=== PATIENT | female | born 1970 | race Caucasian/White ===

== ENCOUNTER 2020-09-15 11:18 | Emergency (ER) | payer MEDICAID, OTHER ==
[~2020-09-15] VITALS: Ht 165.1 cm; Wt 66.0 kg
[2020-09-15] MEDS ORDERED: KETOROLAC 60MG/2ML VIAL IM STA (11:49)
[2020-09-15] MEDS ORDERED: HYDROCODONE/ACETAMINOPHEN 5/325MG TABLET PO STA (11:49)
[2020-09-15 13:21] LABS: CLARITY URINE TURBID (CLEAR); COLOR URINE YELLOW (YELLOW); KETONES URINE NEGATIVE (NEGATIVE); LEUKOCYTE ESTERASE URINE 2+ (NEGATIVE); NITRITE URINE NEGATIVE (NEGATIVE); OCCULT BLOOD URINE NEGATIVE (NEGATIVE); PH URINE 5.5 (4.5-8.0); PROTEIN URINE NEGATIVE (NEGATIVE); SPECIFIC GRAVITY URINE 1.018 (1.005-1.030); UROBILINOGEN URINE 0.2 E.U./dL (0.2-1.0)
[2020-09-15] MEDS ORDERED: NAPR-681 PO (13:52)
[2020-09-15] MEDS ORDERED: HYDR-4346 PO (13:52)
[2020-09-15 14:12] VITALS: BP 101/64
== END 2020-09-15 14:13 | disposition home or self-care (01) ==
LOC: ER 11:18
DX: R07.81 Pleurodynia (principal); M54.9 Dorsalgia, unspecified; M54.5 Low back pain
CPT/HCPCS: 71101; 81003; 93005; 96372; 99285; J1885

== ENCOUNTER 2021-10-29 13:52 | Emergency (ER) | payer MEDICAID, OTHER ==
[~2021-10-29] VITALS: Ht 154.9 cm; Wt 68.0 kg
[~2021-10-29 13:52] MED LIST: HYDR-4346 PO; NAPR-681 PO
[2021-10-29 14:01] VITALS: BP 186/87
[2021-10-29] MEDS ORDERED: IBUPROFEN 600MG TABLET PO STA (15:48)
[2021-10-29 15:59] LABS: CHLORIDE 105 mEq/L (98-107)
[2021-10-29 16:05] LABS: ETHANOL BLOOD < 10 mg/dL
[2021-10-29 16:14] LABS: BASOPHILS % 1.1 % (0.0-2.0); EOSINOPHILS % 2.4 % (0.0-5.0); HEMATOCRIT. 43.8 % (36.0-48.0); HEMOGLOBIN. 14.8 g/dL (12.0-16.0); LYMPHOCYTES % 26.7 % (20.0-50.0); MEAN CORPUSCULAR HEMOGLOBIN 29.3 pg (28.0-32.0); MEAN CORPUSCULAR VOLUME 86.8 fL (81.0-99.0); MEAN PLATELET VOLUME 8.1 fl (7.4-10.4); MONOCYTES % 5.4 % (2.0-8.0); NEUTROPHILS % 64.4 % (40.0-76.0); PLATELET 309 x1000/uL (130-400); RED BLOOD CELL COUNT 5.04 mill/uL (4.2-5.4); RED CELL DISTRIBUTION WIDTH 13.2 % (11.6-14.6)
[2021-10-29] MEDS ORDERED: POTASSIUM CHLORIDE 20MEQ TABLET SR PO NR (16:45)
== END 2021-10-29 17:56 | disposition left against medical advice (07) ==
LOC: ER 13:58
DX: R10.84 Generalized abdominal pain (principal); E87.6 Hypokalemia; I10 Essential (primary) hypertension; F17.290 Nicotine dependence, other tobacco product, uncomplicated; Z98.890 Other specified postprocedural states
CPT/HCPCS: 36415; 80053; 80320; 85025; 99283; G0480

== ENCOUNTER 2022-02-16 17:21 | Emergency (ER) | payer MEDICAID ==
[~2022-02-16] VITALS: Ht 160 cm; Wt 82.0 kg
[2022-02-16 17:55] VITALS: BP 135/83
== END 2022-02-16 20:45 | disposition left against medical advice (07) ==
LOC: ER 17:21
DX: M79.672 Pain in left foot (principal); M79.671 Pain in right foot; M25.562 Pain in left knee; R51.9 Headache, unspecified; M79.89 Other specified soft tissue disorders; M54.50 Low back pain, unspecified; M54.2 Cervicalgia; Z91.81 History of falling
CPT/HCPCS: 99281

== ENCOUNTER 2024-04-20 19:40 | Inpatient (IN) | payer MEDICAID, OTHER ==
[~2024-04-20] VITALS: Ht 152.4 cm; Wt 78.5 kg
[2024-04-20] MEDS: LIDOCAINE HCL/PF 1% 10 MG/ML 5ML VIAL INFIL ONE (20:30)
[2024-04-20] MEDS: BACITRACIN ZINC OINT UDPKT TOP ONE (20:30)
[2024-04-20] MEDS: LORAZEPAM 0.5MG TABLET PO ONE (20:59)
[2024-04-20] MEDS: ACETAMINOPHEN 500MG TABLET PO ONE (20:59)
[2024-04-20] MEDS: AMPICILLIN SOD/SULBACTAM NA 3 G in SODIUM CHLORIDE 0.9% 100 ML IV SCH (21:00)
[2024-04-20] MEDS: TETANUS, DIPHTHERIA, PERTUSSIS VAC/PF 0.5ML (>10YR OLD) IM ONE (21:00)
[2024-04-20 22:14] LABS: BASOPHILS % 0.3 % (0.0-2.0); EOSINOPHILS % 1.2 % (0.0-5.0); HEMATOCRIT. 34.6 % (36.0-48.0); HEMOGLOBIN. 11.6 g/dL (12.0-16.0); LYMPHOCYTES % 10.2 % (20.0-50.0); MEAN CORPUSCULAR HEMOGLOBIN 29.8 pg (28.0-32.0); MEAN CORPUSCULAR HGB CONC 33.6 g/dL (31.0-37.0); MEAN CORPUSCULAR VOLUME 88.9 fL (81.0-99.0); MEAN PLATELET VOLUME 8.2 fl (7.4-10.4); MONOCYTES % 9.7 % (2.0-8.0); NEUTROPHILS % 78.6 % (40.0-76.0); PLATELET 288 x1000/uL (130-400); RED CELL DISTRIBUTION WIDTH 12.9 % (11.6-14.6); WHITE BLOOD COUNT 12.7 x1000/uL (4.5-11.0)
[2024-04-20 22:21] LABS: POTASSIUM 3.5 mEq/L (3.5-5.1)
[2024-04-20 22:22] LABS: CALCIUM 8.5 mg/dL (8.7-10.4)
[2024-04-21] MEDS: SODIUM CHLORIDE 0.9% 1000ML BAG (SEPSIS BOLUS) IV ONE (02:54)
[2024-04-21] MEDS: IOHEXOL-300 100 ML BOTTLE ONE (04:31)
[2024-04-21 08:15] LABS: CLARITY URINE CLEAR (CLEAR); COLOR URINE YELLOW (YELLOW); GLUCOSE URINE NEGATIVE (NEGATIVE); KETONES URINE NEGATIVE (NEGATIVE); LEUKOCYTE ESTERASE URINE NEGATIVE (NEGATIVE); NITRITE URINE NEGATIVE (NEGATIVE); OCCULT BLOOD URINE NEGATIVE (NEGATIVE); PH URINE 5.5 (4.5-8.0); PROTEIN URINE TRACE (NEGATIVE); SPECIFIC GRAVITY URINE 1.034 (1.005-1.030)
[2024-04-21 08:33] LABS: SQUAMOUS EPITHELIAL CELL URINE 1+ /lpf (RARE/1+)
[2024-04-21 08:34] LABS: BACTERIA URINE TRACE; MUCUS URINE TRACE /lpf (< = 2+)
[2024-04-21 08:36] LABS: RBC URINE NONE SEEN /hpf (0-2)
[2024-04-21] MEDS ORDERED: DIPHENHYDRAMINE 50MG/ML VIAL IV PRN (09:45)
[2024-04-21] MEDS ORDERED: ONDANSETRON HCL 4MG/2ML INJ IV PRN (09:45)
[2024-04-21] MEDS ORDERED: IPRATROPIUM/ALBUTEROL 0.5-3(2.5)MG/3ML NEB HHN PRN (09:45)
[2024-04-21] MEDS: ACETAMINOPHEN 325MG TABLET PO PRN (15:06)
[2024-04-21 22:00] VITALS: BP 93/60; PULSE 88; RESP 23; O2SAT 94
[2024-04-21 22:21] VITALS: BP 88/49; PULSE 87; RESP 25; TEMP 37.5856
[2024-04-22] VITALS (12 sets, daily range): BP systolic 73–101; BP diastolic 47–76; PULSE 75–93; RESP 15–28; TEMP 36.114–37.55856; O2SAT 88–100
[2024-04-22 07:07] LABS: CARBON DIOXIDE 27 mEq/L (21-32); CHLORIDE 106 mEq/L (98-107); POTASSIUM 3.1 mEq/L (3.5-5.1); SODIUM 138 mEq/L (136-145)
[2024-04-22 07:08] LABS: CALCIUM 8.5 mg/dL (8.7-10.4)
[2024-04-22 07:10] LABS: BASOPHILS % 0.6 % (0.0-2.0); EOSINOPHILS % 1.6 % (0.0-5.0); HEMATOCRIT. 32.1 % (36.0-48.0); HEMOGLOBIN. 10.8 g/dL (12.0-16.0); LYMPHOCYTES % 11.6 % (20.0-50.0); MEAN CORPUSCULAR HEMOGLOBIN 29.9 pg (28.0-32.0); MEAN CORPUSCULAR HGB CONC 33.6 g/dL (31.0-37.0); MEAN PLATELET VOLUME 7.9 fl (7.4-10.4); NEUTROPHILS % 76.2 % (40.0-76.0); PLATELET 266 x1000/uL (130-400); RED BLOOD CELL COUNT 3.61 mill/uL (4.2-5.4); RED CELL DISTRIBUTION WIDTH 12.6 % (11.6-14.6); WHITE BLOOD COUNT 12.6 x1000/uL (4.5-11.0)
[2024-04-22 07:13] LABS: CREATININE 0.6 mg/dL (0.6-1.0); GLUCOSE 101 mg/dL (70-105); UREA NITROGEN BLOOD 8 mg/dL (9-23)
[2024-04-22] MEDS: POTASSIUM CHLORIDE 20MEQ TABLET SR PO NR (10:56)
[2024-04-22] MEDS: HYDROCODONE/ACETAMINOPHEN 5/325MG TABLET PO PRN (11:30)
[2024-04-22] MEDS ORDERED: NALOXONE HCL 0.4MG/ML VIAL IV PRN (11:30)
[2024-04-22 11:49] LABS: *AMPHETAMINES SCREEN URINE PRESUMPTIVE POSITIVE (NEGATIVE); *BENZODIAZEPINES SCREEN URINE NEGATIVE (NEGATIVE)
[2024-04-22 11:50] LABS: *BARBITURATES SCREEN URINE NEGATIVE (NEGATIVE); *COCAINE SCREEN URINE NEGATIVE (NEGATIVE); CANNABINOID URINE SCREEN NEGATIVE (NEGATIVE); ECSTASY MDMA SCREEN URINE NEGATIVE (NEGATIVE); METHADONE URINE SCREEN NEGATIVE (NEGATIVE); OPIATES URINE SCREEN NEGATIVE (NEGATIVE); PHENCYCLIDINE URINE SCREEN NEGATIVE (NEGATIVE)
[2024-04-22 13:00] LABS: PROTHROMBIN TIME 10.9 sec (9.6-11.0)
[2024-04-22] MEDS: PIPERACILLIN/TAZO 3.375G/50ML 50 ML IV SCH (13:10)
[2024-04-22] MEDS ORDERED: SODIUM CHLORIDE 0.9% 500 ML IV NR (23:07)
[2024-04-23] VITALS (12 sets, daily range): BP systolic 70–103; BP diastolic 53–75; PULSE 70–83; RESP 17–29; TEMP 36.114–37.33632; O2SAT 92–100
[2024-04-23 05:23] LABS: EOSINOPHILS % 4.4 % (0.0-5.0); HEMATOCRIT. 33.4 % (36.0-48.0); LYMPHOCYTES % 15.6 % (20.0-50.0); MEAN CORPUSCULAR HEMOGLOBIN 29.6 pg (28.0-32.0); MEAN CORPUSCULAR HGB CONC 32.9 g/dL (31.0-37.0); MONOCYTES % 9.7 % (2.0-8.0); NEUTROPHILS % 69.3 % (40.0-76.0); PLATELET 281 x1000/uL (130-400); RED BLOOD CELL COUNT 3.71 mill/uL (4.2-5.4); RED CELL DISTRIBUTION WIDTH 12.9 % (11.6-14.6); WHITE BLOOD COUNT 10.1 x1000/uL (4.5-11.0)
[2024-04-23] MEDS: SODIUM CHLORIDE 0.9% 250 ML IV NR (05:59)
[2024-04-23] MEDS: SODIUM CHLORIDE 0.9% 500 ML IV ONE ×2 (06:03→08:29)
[2024-04-23 06:10] LABS: CARBON DIOXIDE 28 mEq/L (21-32); CHLORIDE 105 mEq/L (98-107); POTASSIUM 3.5 mEq/L (3.5-5.1); SODIUM 139 mEq/L (136-145)
[2024-04-23 06:11] LABS: CALCIUM 8.2 mg/dL (8.7-10.4)
[2024-04-23 06:15] LABS: CREATININE 0.7 mg/dL (0.6-1.0); GLUCOSE 95 mg/dL (70-105)
[2024-04-23 06:16] LABS: ALANINE AMINOTRANSFERASE 14 IU/L (10-49); UREA NITROGEN BLOOD 10 mg/dL (9-23)
[2024-04-23 06:17] LABS: ASPARTATE AMINOTRANSFERASE 13 IU/L (<34)
[2024-04-23 06:18] LABS: BILIRUBIN TOTAL 0.3 mg/dL (0.1-1.0)
[2024-04-23 06:58] LABS: PROTEIN TOTAL 5.6 g/dL (6.0-8.3)
[2024-04-23] MEDS: SERTRALINE HCL 25MG TABLET PO SCH (10:26)
[2024-04-23 16:26] LABS: UCG SCREEN NEGATIVE
[2024-04-23 16:27] LABS: UCG KIT LOT# 847686
[2024-04-23] MEDS: SODIUM CHLORIDE 0.9% 500 ML IV NR (16:38)
[2024-04-23] MEDS: MIDODRINE HCL 5MG TABLET PO SCH (16:39)
[2024-04-23] MEDS: TRAZODONE HCL 50MG TABLET PO SCH (21:13)
[2024-04-23] MEDS: DEXT 5%/0.45% NACL KCL 20MEQ/L 1,000 ML IV SCH (23:16)
[2024-04-24] VITALS (12 sets, daily range): BP systolic 69–110; BP diastolic 46–71; PULSE 65–78; RESP 8–26; TEMP 36.44736–37.39188; O2SAT 92–100
[2024-04-24 05:32] LABS: CHLORIDE 106 mEq/L (98-107); POTASSIUM 3.6 mEq/L (3.5-5.1); SODIUM 140 mEq/L (136-145)
[2024-04-24 05:33] LABS: CALCIUM 8.2 mg/dL (8.7-10.4); CARBON DIOXIDE 28 mEq/L (21-32)
[2024-04-24 05:38] LABS: CREATININE 0.7 mg/dL (0.6-1.0); GLUCOSE 103 mg/dL (70-105); UREA NITROGEN BLOOD 8 mg/dL (9-23)
[2024-04-24] MEDS: VANCOMYCIN 1.5GM/250ML 250 ML IV SCH (13:24)
[2024-04-24] MEDS: VANCOMYCIN 750MG/250ML 250 ML IV SCH (20:58)
[2024-04-25] VITALS (10 sets, daily range): BP systolic 93–131; BP diastolic 54–81; PULSE 59–86; RESP 13–24; TEMP 36.44736–37.11408; O2SAT 92–100
[2024-04-25 06:28] LABS: CHLORIDE 106 mEq/L (98-107); SODIUM 140 mEq/L (136-145)
[2024-04-25 06:29] LABS: CALCIUM 8.6 mg/dL (8.7-10.4); CARBON DIOXIDE 28 mEq/L (21-32)
[2024-04-25 06:34] LABS: CREATININE 0.8 mg/dL (0.6-1.0); GLUCOSE 96 mg/dL (70-105); UREA NITROGEN BLOOD 9 mg/dL (9-23)
[2024-04-25 06:35] LABS: ALANINE AMINOTRANSFERASE 13 IU/L (10-49); ALBUMIN 3.2 g/dL (3.2-4.8); ASPARTATE AMINOTRANSFERASE 16 IU/L (<34)
[2024-04-25 06:36] LABS: BILIRUBIN TOTAL 0.2 mg/dL (0.1-1.0); PROTEIN TOTAL 5.9 g/dL (6.0-8.3)
[2024-04-25 06:37] LABS: BASOPHILS % 0.7 % (0.0-2.0); EOSINOPHILS % 4.3 % (0.0-5.0); HEMATOCRIT. 34.5 % (36.0-48.0); HEMOGLOBIN. 11.2 g/dL (12.0-16.0); LYMPHOCYTES % 24.5 % (20.0-50.0); MEAN CORPUSCULAR HEMOGLOBIN 29.5 pg (28.0-32.0); MEAN CORPUSCULAR HGB CONC 32.5 g/dL (31.0-37.0); MEAN CORPUSCULAR VOLUME 90.7 fL (81.0-99.0); MEAN PLATELET VOLUME 7.8 fl (7.4-10.4); MONOCYTES % 10.2 % (2.0-8.0); NEUTROPHILS % 60.3 % (40.0-76.0); PLATELET 340 x1000/uL (130-400); RED CELL DISTRIBUTION WIDTH 12.9 % (11.6-14.6)
[2024-04-25] MEDS ORDERED: HYDROMORPHONE HCL/PF 1MG/ML INJ ONE (18:38)
[2024-04-25] MEDS ORDERED: PROPOFOL 200MG/20ML VIAL IV ONE (18:39)
[2024-04-25] MEDS ORDERED: HYDROMORPHONE HCL/PF 1MG/ML INJ IV PRN (19:45)
[2024-04-25] MEDS ORDERED: HYDRALAZINE 20MG/ML VIAL IV PRN (19:45)
[2024-04-25] MEDS ORDERED: GLYCOPYRROLATE 0.2 MG/ML 2ML VIAL IV PRN (19:45)
[2024-04-25] MEDS ORDERED: ONDANSETRON HCL 4MG/2ML INJ IV PRN (19:45)
[2024-04-25] MEDS ORDERED: LABETALOL 5MG/ML 4ML INJ IV PRN (19:45)
[2024-04-25] MEDS: HYDROMORPHONE HCL/PF 1MG/ML INJ IV PRN ×2 (19:53→20:39)
[2024-04-25] MEDS: VANCOMYCIN 750MG PREMIX 150 ML IV SCH (21:29)
[2024-04-26] VITALS (8 sets, daily range): BP systolic 86–110; BP diastolic 59–72; PULSE 62–72; RESP 15–20; TEMP 36.33624–36.83628; O2SAT 95–100
[2024-04-26 07:22] LABS: CARBON DIOXIDE 27 mEq/L (21-32); CHLORIDE 105 mEq/L (98-107); POTASSIUM 4.1 mEq/L (3.5-5.1); SODIUM 138 mEq/L (136-145)
[2024-04-26 07:23] LABS: BASOPHILS % 0.1 % (0.0-2.0); CALCIUM 8.5 mg/dL (8.7-10.4); HEMATOCRIT. 34.2 % (36.0-48.0); HEMOGLOBIN. 11.4 g/dL (12.0-16.0); LYMPHOCYTES % 10.9 % (20.0-50.0); MEAN CORPUSCULAR HEMOGLOBIN 30.2 pg (28.0-32.0); MEAN CORPUSCULAR HGB CONC 33.4 g/dL (31.0-37.0); MEAN CORPUSCULAR VOLUME 90.2 fL (81.0-99.0); MEAN PLATELET VOLUME 7.8 fl (7.4-10.4); PLATELET 336 x1000/uL (130-400); RED BLOOD CELL COUNT 3.79 mill/uL (4.2-5.4); RED CELL DISTRIBUTION WIDTH 12.4 % (11.6-14.6); WHITE BLOOD COUNT 7.3 x1000/uL (4.5-11.0)
[2024-04-26 07:28] LABS: CREATININE 0.8 mg/dL (0.6-1.0); GLUCOSE 188 mg/dL (70-105); UREA NITROGEN BLOOD 10 mg/dL (9-23)
[2024-04-26] MEDS: HYDROCODONE/ACETAMINOPHEN 5/325MG TABLET PO PRN (11:26)
[2024-04-27] VITALS (8 sets, daily range): BP systolic 88–143; BP diastolic 54–108; PULSE 52–64; RESP 13–19; TEMP 36.22512–36.89184; O2SAT 95–100
[2024-04-27 07:06] LABS: CARBON DIOXIDE 26 mEq/L (21-32); CHLORIDE 108 mEq/L (98-107); POTASSIUM 4.3 mEq/L (3.5-5.1); SODIUM 140 mEq/L (136-145)
[2024-04-27 07:07] LABS: CALCIUM 8.7 mg/dL (8.7-10.4)
[2024-04-27 07:11] LABS: CREATININE 0.8 mg/dL (0.6-1.0)
[2024-04-27 07:12] LABS: GLUCOSE 86 mg/dL (70-105); UREA NITROGEN BLOOD 11 mg/dL (9-23)
[2024-04-27 07:38] LABS: BASOPHILS % 0.6 % (0.0-2.0); EOSINOPHILS % 7.3 % (0.0-5.0); HEMOGLOBIN. 11.4 g/dL (12.0-16.0); LYMPHOCYTES % 46.7 % (20.0-50.0); MEAN CORPUSCULAR HEMOGLOBIN 29.9 pg (28.0-32.0); MEAN CORPUSCULAR HGB CONC 32.4 g/dL (31.0-37.0); MEAN CORPUSCULAR VOLUME 92.2 fL (81.0-99.0); MEAN PLATELET VOLUME 8.3 fl (7.4-10.4); MONOCYTES % 7.6 % (2.0-8.0); NEUTROPHILS % 37.8 % (40.0-76.0); PLATELET 306 x1000/uL (130-400); RED BLOOD CELL COUNT 3.79 mill/uL (4.2-5.4); RED CELL DISTRIBUTION WIDTH 12.9 % (11.6-14.6); WHITE BLOOD COUNT 5.3 x1000/uL (4.5-11.0)
[2024-04-27] MEDS: SERTRALINE HCL 50MG TABLET PO SCH (09:07)
[2024-04-28] VITALS: BP 113/70; PULSE 54; RESP 14; TEMP 36.83628; O2SAT 98
[2024-04-28 04:00] VITALS: BP 111/65; PULSE 50; RESP 14; TEMP 36.61404
[2024-04-28 08:00] VITALS: BP 103/63; PULSE 54; RESP 14; TEMP 37.33632; O2SAT 96
[2024-04-28] MEDS ORDERED: HYDROMORPHONE HCL/PF 2MG/ML INJ IV PRN (08:15)
[2024-04-28] MEDS: HYDROMORPHONE HCL/PF 1MG/ML INJ IV PRN (10:37)
[2024-04-28 12:00] VITALS: BP 93/58; PULSE 62; RESP 16; TEMP 36.50292; O2SAT 99
[2024-04-28 16:00] VITALS: BP 115/35; PULSE 62; RESP 18; TEMP 36.6696; O2SAT 98
[2024-04-28 20:00] VITALS: BP 84/55; PULSE 54; RESP 14; TEMP 36.9474; O2SAT 98
[2024-04-29] VITALS: BP 94/68; PULSE 49; RESP 11; TEMP 36.50292; O2SAT 98
[2024-04-29 04:00] VITALS: BP 107/61; PULSE 54; RESP 19; TEMP 36.28068; O2SAT 99
[2024-04-29 08:00] VITALS: BP 99/57; PULSE 54; RESP 15; TEMP 36.6696; O2SAT 98
[2024-04-29 12:00] VITALS: BP 98/56; PULSE 62; RESP 20; TEMP 36.6696; O2SAT 100
[2024-04-29 16:00] VITALS: BP 90/50; PULSE 58; RESP 20; TEMP 36.78072; O2SAT 96
[2024-04-29 20:00] VITALS: BP 107/66; PULSE 60; RESP 18; TEMP 35.78064; O2SAT 92
[2024-04-30] VITALS: BP 100/53; PULSE 56; RESP 18; TEMP 36.83628; O2SAT 90
[2024-04-30 04:00] VITALS: BP 117/46; PULSE 52; RESP 18; TEMP 36.6696
[2024-04-30 08:00] VITALS: BP 96/54; PULSE 54; RESP 20; TEMP 36.22512; O2SAT 97
[2024-04-30 12:00] VITALS: BP 97/48; PULSE 63; RESP 20; TEMP 36.28068; O2SAT 97
[2024-04-30] MEDS ORDERED: HYDR-4001 MT (12:50)
[2024-04-30] MEDS ORDERED: SULF1TAB48 MT (12:50)
[2024-04-30 13:34] VITALS: BP 97/48; PULSE 63; TEMP 97.3; O2SAT 97
== END 2024-04-30 16:01 | disposition home health service (06) | DRG 720 ==
LOC: ER 19:40 → EDBEDREQSVC 04-21 02:28 → EDBEDREQ 04-21 02:28 → EDBEDREQTM 04-21 02:28 → EDBEDREQDT 04-21 02:28 → 5EST 04-21 21:24 → 6WST 04-29 11:35
PROVIDERS: ADMIT Internal Medicine; ATTEND Internal Medicine
PROC: 0W9L0ZZ Drainage of Lower Back, Open Approach (ICD-10-PCS; principal; 2024-04-25)
DX: A41.9 Sepsis, unspecified organism (principal); R65.21 Severe sepsis with septic shock; E44.1 Mild protein-calorie malnutrition; L02.212 Cutaneous abscess of back [any part, except buttock and flank]; L03.311 Cellulitis of abdominal wall; E87.6 Hypokalemia; J45.909 Unspecified asthma, uncomplicated; F43.10 Post-traumatic stress disorder, unspecified; F32.9 Major depressive disorder, single episode, unspecified; F15.90 Other stimulant use, unspecified, uncomplicated; L02.211 Cutaneous abscess of abdominal wall; W57.XXXA Bitten or stung by nonvenomous insect and other nonvenomous arthropods, initial encounter; Y93.89 Activity, other specified; Y92.89 Other specified places as the place of occurrence of the external cause; Y99.8 Other external cause status; Z98.891 History of uterine scar from previous surgery; Z68.33 Body mass index [BMI] 33.0-33.9, adult
CPT/HCPCS: 36415; 74177; 80048; 80053; 80202; 80305; 81003; 81025; 83605; 84145; 85025; 87070; 87075; 87077; 87186; 90471; 90715; 93005; 93306; 93970; 99285; A6261; J0295; J1171; J2543; J2704; J3370; J3490; J7030; J7050; Q9967

== ENCOUNTER 2024-05-14 11:09 | Emergency (ER) | payer OTHER ==
[~2024-05-14] VITALS: Ht 160 cm; Wt 73.0 kg
[~2024-05-14 11:09] MED LIST changes: +HYDR-4001 MT; -HYDR-4346 PO; -NAPR-681 PO; +SULF1TAB48 MT
[2024-05-14 11:12] VITALS: O2SAT 99
[2024-05-14 11:42] VITALS: BP 132/72; PULSE 74; RESP 18; TEMP 98.3; O2SAT 96
[2024-05-14] MEDS ORDERED: HYDROCODONE/ACETAMINOPHEN 5/325MG TABLET PO ONE (14:30)
== END 2024-05-14 14:58 | disposition left against medical advice (07) ==
LOC: ER 11:19
DX: R10.9 Unspecified abdominal pain (principal); F32.A Depression, unspecified; J45.909 Unspecified asthma, uncomplicated; Z98.890 Other specified postprocedural states
CPT/HCPCS: 99281

== ENCOUNTER 2025-01-28 12:51 | Emergency (ER) | payer OTHER ==
[~2025-01-28] VITALS: Ht 162.6 cm; Wt 77.0 kg
[2025-01-28 13:27] LABS: BASOPHILS % 0.8 % (0.0-2.0); EOSINOPHILS % 4.2 % (0.0-5.0); HEMATOCRIT. 40.9 % (36.0-48.0); HEMOGLOBIN. 13.6 g/dL (12.0-16.0); LYMPHOCYTES % 45.0 % (20.0-50.0); MEAN PLATELET VOLUME 7.8 fl (7.4-10.4); MONOCYTES % 6.1 % (2.0-8.0); NEUTROPHILS % 43.9 % (40.0-76.0); PLATELET 265 x1000/uL (130-400); RED BLOOD CELL COUNT 4.61 mill/uL (4.2-5.4); RED CELL DISTRIBUTION WIDTH 13.6 % (11.6-14.6)
[2025-01-28 13:41] LABS: CREATININE 0.9 mg/dL (0.6-1.0); UREA NITROGEN BLOOD 14 mg/dL (9-23)
[2025-01-28 13:43] LABS: TROPONIN I HIGH SENSITIVITY 8 ng/L (3.0-34)
[2025-01-28 14:51] VITALS: PULSE 84; RESP 20; O2SAT 96
[2025-01-28] MEDS: IPRATROPIUM BROMIDE (0.02%) 0.5MG/2.5ML NEB HHN STA (14:51)
[2025-01-28] MEDS: ALBUTEROL (0.083%) 2.5MG/3ML NEB HHN SCH (14:51)
[2025-01-28] MEDS: POTASSIUM CHLORIDE 20MEQ TABLET SR PO ONE (14:59)
[2025-01-28] MEDS: PREDNISONE 20MG TABLET PO STA (14:59)
[2025-01-28 17:17] VITALS: BP 126/79; PULSE 84; RESP 20; TEMP 37.1; O2SAT 96
== END 2025-01-28 17:34 | disposition short-term general hospital (02) ==
LOC: ER 12:51 → CANBEDREQ 16:38 → ER 17:34
DX: J44.1 Chronic obstructive pulmonary disease with (acute) exacerbation (principal); R07.89 Other chest pain; E87.6 Hypokalemia; F32.A Depression, unspecified; Z59.00 Homelessness unspecified; Z79.899 Other long term (current) drug therapy
CPT/HCPCS: 80048; 85025; 84484; 36415; 71045; 94640; 93005; 99291; J7512; Z7610 ×2; 94070